=== PATIENT | female | born 1985 | race Caucasian/White ===

== ENCOUNTER 2018-06-01 16:07 | Emergency (ER) | payer OTHER ==
[~2018-06-01] VITALS: Ht 160 cm; Wt 74.4 kg
[2018-06-01 16:21] VITALS: BP 131/86
--- NOTE | 2018-06-01 16:31 | NUR ---
PT C/O TOOTH PAIN 10/10 TO UPPER AND BOTTOM LEFT TOOTH X 3 WEEKS WITH NECK PAIN AND HEAD ACHE. DENIES INJURY OR FEVER. MINIMAL SWELLING AND TENDERNESS. HX: DM RX; INSULIN
--- NOTE | 2018-06-01 17:11 | NUR ---
Dr. Champion evaluating patient at bedside.
[2018-06-01] MEDS ORDERED: KETOROLAC 60 MG/2 ML VIAL IM ONE (17:20)
[2018-06-01] MEDS ORDERED: cefTRIAXone 1,000 MG in LIDOCAINE 1% ***ER ONLY *** 2.1 ML IM ONE (17:20)
[2018-06-01] MEDS ORDERED: cefTRIAXone 1,000 MG VIAL ONE (17:38)
[2018-06-01] MEDS ORDERED: LIDOCAINE MPF 1% - 5 mL VIAL 5 ML ONE (17:39)
--- NOTE | 2018-06-01 18:28 | NUR ---
PT RESTING COMFORTABLY, NO C/O PAIN AT THIS TIME, DR LUCIO AT BEDSIDE
[2018-06-01 18:37] VITALS: BP 121/77
--- NOTE | 2018-06-01 18:37 | NUR ---
Patient discharged with v/s stable. Written and verbal after care instructions given and explained. Patient alert, oriented and verbalized understanding of instructions. Ambulatory with steady gait. All questions addressed prior to discharge. ID band removed. Patient advised to follow up with PMD. Rx of Clindamycin, motrin given. Patient educated on indication of medication including possible reaction and side effects. Opportunity to ask questions provided and answered.
== END 2018-06-01 18:37 | disposition home or self-care (01) ==
LOC: MED 16:07
DX: K08.89 Other specified disorders of teeth and supporting structures (principal); E11.9 Type 2 diabetes mellitus without complications
CPT/HCPCS: 96372; 99284; J0696; J1885; J2001

== ENCOUNTER 2019-11-03 00:20 | Emergency (ER) | payer OTHER ==
[~2019-11-03] VITALS: Ht 162.6 cm; Wt 73.5 kg
[2019-11-03 00:24] VITALS: BP 100/64
--- NOTE | 2019-11-03 00:33 | NUR ---
PT TAKEN TO BED 4
--- NOTE | 2019-11-03 00:37 | NUR ---
32 Y/O FEMALE BIB SELF WITH C/O FEVER, BODY ACHES X 3 DAYS. PT STATES SHE VOMITED X 30 MIN AGO. PT DENIES COUGH. RESPIRTATIONS ARE EVEN AND UNLABORED. NO USE OF ACCESSORY MUSCLE USE. PT ADMITS TO DX OF DM AND IS CURRENTLY TAKING METFORMIN DAILY. SKIN IS WARM AND DRY TO TOUCH. PT RESTING IN BED LOOKING AT PHONE. VSS. MED HX: DM ALLERGIES: NKA
--- NOTE | 2019-11-03 01:51 | NUR ---
DR STEVEN AT BEDSIDE.
[2019-11-03 02:36] VITALS: BP 100/64
== END 2019-11-03 02:35 | disposition home or self-care (01) ==
LOC: MED 00:20
DX: B34.9 Viral infection, unspecified (principal); E11.9 Type 2 diabetes mellitus without complications
CPT/HCPCS: 87804; 99283